=== PATIENT | female | born 1965 | race Caucasian/White ===

== ENCOUNTER → 2024-09-17 | Outpatient (CLI) | payer BC, SELFPAY ==
[2024-09-17 10:55] LABS: T4 (Thyroxine) 9.5 mcg/dL (4.5-10.9)
[2024-09-17 10:58] LABS: Cardiac Risk Estimate 4.1 RATIO (3.7-5.6); Cholesterol 212 mg/dL (132-200); HDL Cholesterol 52 mg/dL (40-60); LDL Cholesterol,Calculated 137 mg/dL (0-130); Thyroid Stimulating Hormone 2.31 uIU/mL (0.55-4.78); Triglycerides 115 mg/dL (30-150)
[2024-09-17 11:12] LABS: Glucose Estimated Average 88 mg/dL (80-131); Hemoglobin A1C 4.7 % Hgb (4.8-6.0)
[2024-09-24 07:28] LABS: Direct LDL* 138 mg/dL (<100); T3,Total* 79 ng/dL (76-181)
== END | disposition home or self-care (01) ==
PROVIDERS: PCP Physician Assistant; Referring Provider Physician Assistant; Visit Provider Physician Assistant
DX: E06.3 Autoimmune thyroiditis (principal)
CPT/HCPCS: 36415; 80061; 83036; 83721; 84436; 84443; 84480

== ENCOUNTER 2024-09-18 09:30 | Outpatient (RCR) | payer BC, SELFPAY ==
--- NOTE | 2024-09-04 10:12 | PT.ODAYNRPT ---
PT Outpatient Daily Note OP Daily Note Outpatient Physical Therapy Treatment Date: 09/04/24 Visit Reasons: Parkinson's Subjective: Pt reports she is doing ok, today is an ok day feels a little more stiff than usual. Pt mentioned they had added a new medication that was making her dizzy, pt fell in her home as a result of the dizziness and her balance. No report of injuries of visit to ER. Objective: Please see flow sheet for ther ex list. Assessment: Pt presents in clinic with healing black eye on L side, pt shared she had a fall last week. Pt demonstrates worsening shuffling gait at beginning of todays session compared to last PT session. Added core strengthening to work on static and dynamic balance. Plan: Continue with POC. Length of Time (minutes) of Treatment: 30 Minutes Procedure Charges Therapeutic Exercise 30 minutes: Yes
--- NOTE | 2024-09-06 10:07 | PT.ODAYNRPT ---
PT Outpatient Daily Note OP Daily Note Outpatient Physical Therapy Treatment Date: 09/06/24 Visit Reasons: Parkinson's Subjective: Pt reports she feels better, stopped taking a medication that was giving her dizziness. Objective: Please see flow sheet for ther ex list. Assessment: Pt ambulating today with increase stride compared to last PT session. Pt instructed on standing marches, pt performs with moderate sway requiring UE to recover balance. Plan: Continue with POc. Length of Time (minutes) of Treatment: 30 Minutes Procedure Charges Therapeutic Exercise 30 minutes: Yes
--- NOTE | 2024-09-11 09:50 | PT.ODS1RPT ---
PT OP Progress/Discharge Note Date of Service: 09/11/24 Progress Note/DC Note Progress Note/Discharge Note: Progress Note Patient Information Visit Reasons: Parkinson's Medical Diagnosis: Parkinson; Ataxia Treatment Dx #1: Abnormal Gait Service Continue Service or Discharge: Continue Service Certification Date Certification Dates: 09/11/24 to 12/12/24 Status Subjective: Pt reports she has fallen a few times in the past few weeks due to feeling dizzy or medication related. Pt mention recently neurologist saw white spots in her cerebellum with most recent MRI. Pt continues to drive and perform ADLs as best as she can. Pt still has limitation with walking, recreational activities, balance, and performing certain ADLs. Pt wants to continue physical therapy to work on balance, walking, core strength, and UE mobility. Pt's one main goal is to be able to use a treadmill in the future. Objective: BLE AROM: all motions are WFL BUE AROM: all motions are WFL BLE MMTs: grossly 4/5 BUE MMTs: grossly 4/5 TU sec Sit-Stand: 10 reps Modified CTSIB condition 4: 5 sec Assessment: Pt demonstrate functional strength, however, continues to have balance deficits, sequencing, and timing impairment with cerebellum involvement. Pt's gait improvement is inconsistent each session due to presented symptoms sometimes related to medication. Pt has not met set goals in therapy and will continue to benefit from physical therapy; thank you for your referrals. Plan: Continue with PT/POC and add 12 sessions (2 x wk for 6 wks) Procedure Charges Therapeutic Exercise 30 minutes: Yes
--- NOTE | 2024-09-18 10:53 | PT.ODAYNRPT ---
PT Outpatient Daily Note OP Daily Note Outpatient Physical Therapy Treatment Date: 09/18/24 Visit Reasons: Parkinson's Subjective: Pt brought in by family. Objective: Please see flow sheet for ther ex list. 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 Plan: Continue with POC. Length of Time (minutes) of Treatment: 30 Minutes Procedure Charges Therapeutic Exercise 30 minutes: Yes
--- NOTE | 2024-10-23 09:28 | PT.ODS1RPT ---
PT OP Progress/Discharge Note Date of Service: 10/23/25 Progress Note/DC Note Progress Note/Discharge Note: DC Note Patient Information Visit Reasons: Parkinson's Service Discharge Date: 10/23/24 Status Assessment: Pt has been seen for 24 visits (eval + 23 visits). Pt last treated on 09/18/24 and will be d/c from care at this time due to plan of care 10/18/24. Pt did not meet set goals in therapy; thank you for your referrals.
== END 2024-09-29 23:59 | disposition home or self-care (01) ==
LOC: CPTX 09:30
PROVIDERS: PCP Nurse Practitioner Family; Referring Provider Nurse Practitioner Family; Visit Provider Nurse Practitioner Family
DX: R27.0 Ataxia, unspecified (principal); G20.A1 Parkinson's disease without dyskinesia, without mention of fluctuations; Z91.81 History of falling
CPT/HCPCS: 97110

== ENCOUNTER → 2025-01-03 | Outpatient (CLI) | payer BC, SELFPAY ==
[2025-01-03 09:57] LABS: Basophils # (Auto) 0.1 Thou/mm3 (0.0-0.2); Basophils % (Auto) 1 % (0-2.5); Eosinophils # (Auto) 0.1 Thou/mm3 (0.0-0.5); Eosinophils % (Auto) 1 % (0-10); Hematocrit 33.9 % (36.0-46.0); Hemoglobin 11.3 g/dL (12.0-16.0); Immature Granulocytes % (Auto) 0 % (0-0); Immature Granulocytes Auto 0.02 Thou/mm3 (0.00-0.00); Lymphocytes # (Auto) 2.1 Thou/mm3 (1.0-4.8); Lymphocytes % (Auto) 24 % (10-50); Mean Corpuscular HGB Conc 33.3 g/dl (31.0-37.0); Mean Corpuscular Hemoglobin 30.5 pg (25.0-35.0); Mean Corpuscular Volume 91 fL (80-100); Monocytes # (Auto) 0.6 Thou/mm3 (0.0-0.8); Monocytes % (Auto) 7 % (0-12); Neutrophils # (Auto) 5.9 Thou/mm3 (1.8-7.7); Neutrophils % (Auto) 68 % (37-80); Nucleated Red Blood Cell % 0 /100 WBC (0); Platelet Count 325 Thou/mm3 (140-440); RDW Standard Deviation 41.4 fL (36.4-46.3); Red Blood Count 3.71 Miln/mm3 (4.00-5.20); White Blood Count 8.8 Thou/mm3 (3.6-11.0)
[2025-01-03 10:09] LABS: Glucose Estimated Average 94 mg/dL (80-131); Hemoglobin A1C 4.9 % Hgb (4.8-6.0)
[2025-01-03 10:40] LABS: Vitamin B12 1236 pg/mL (211-911); Vitamin D 25 Hydroxy Total 45.4 ng/mL (7.3-40.2)
[2025-01-03 10:42] LABS: Ferritin 7 ng/mL (7.3-270.7); Iron 57 mcg/dL (50-170); Percent Iron Saturation 14 % (20-55); Total Iron Binding Capacity 383 mcg/dL (250-425); Unsaturated Iron Binding 326 (225-295)
[2025-01-03 10:43] LABS: Alanine Aminotransferase 15 U/L (10-49); Albumin, Serum 4.6 gm/dL (3.4-4.8); Albumin/Globulin Ratio 1.9 (1.2-2.2); Alkaline Phosphatase 44 U/L (46-116); Anion Gap 7 (7-16); Aspartate Amino Transferase < 10 U/L (0-34); BUN/Creatinine Ratio 18 Ratio (12-20); Bilirubin,Total 0.3 mg/dL (0.3-1.2); Blood Urea Nitrogen 16 mg/dL (9-23); Calcium 9.9 mg/dL (8.3-10.6); Calcium (Corrected) 9.9 mg/dL (8.5-10.1); Carbon Dioxide 28.4 mMol/L (20.0-31.0); Cardiac Risk Estimate 3.6 RATIO (3.7-5.6); Chloride 109 mMol/L (98-107); Cholesterol 195 mg/dL (132-200); Creatinine (Component) 0.9 mg/dL (0.6-1.3); Free T3 3.3 pg/mL (2.3-4.2); Free T4 (Free Thyroxine) 2.55 ng/dL (0.89-1.76); Globulin 2.4 gm/dL (2.3-3.5); Glucose 91 mg/dL (74-106); HDL Cholesterol 54 mg/dL (40-60); LDL Cholesterol,Calculated 113 mg/dL (0-130); Osmolality,Calculated 288 (275-295); Potassium 4.2 mMol/L (3.4-5.1); Sodium 144 mMol/L (136-145); Thyroid Stimulating Hormone 0.18 uIU/mL (0.55-4.78); Triglycerides 140 mg/dL (30-150); eGFR > 60 See Note
[2025-01-09 06:45] LABS: Sex Hormone Binding Globulin* 66 nmol/L (14-73); T3,Total* 68 ng/dL (76-181); Testosterone, Free,Dialysis 6.7 pg/mL (0.1-6.4); Testosterone, Total, Dialysis 61 ng/dL (2-45)
== END | disposition home or self-care (01) ==
PROVIDERS: PCP Family Medicine; Referring Provider Advanced Practice Midwife; Visit Provider Advanced Practice Midwife
DX: E61.1 Iron deficiency (principal); M25.9 Joint disorder, unspecified; R53.83 Other fatigue; N95.1 Menopausal and female climacteric states; L65.9 Nonscarring hair loss, unspecified; E78.5 Hyperlipidemia, unspecified; E03.9 Hypothyroidism, unspecified; E55.9 Vitamin D deficiency, unspecified
CPT/HCPCS: 36415; 80053; 80061; 82306; 82607; 82728; 83036; 83540; 83550; 84270; 84402; 84403; 84439; 84443; 84480; 84481; 85025

== ENCOUNTER → 2025-02-12 | Outpatient (CLI) | payer BC, SELFPAY ==
[2025-02-12 10:18] LABS: Iron 44 mcg/dL (50-170); Percent Iron Saturation 11 % (20-55); Total Iron Binding Capacity 376 mcg/dL (250-425); Unsaturated Iron Binding 332 (225-295)
== END | disposition home or self-care (01) ==
PROVIDERS: PCP Family Medicine; Referring Provider Family Medicine; Visit Provider Family Medicine
DX: D50.9 Iron deficiency anemia, unspecified (principal)
CPT/HCPCS: 36415; 83540; 83550

== ENCOUNTER 2025-02-28 05:32 | Emergency (ER) | payer BC, SELFPAY ==
[2025-02-28 05:33] VITALS: BMI 27.4
[2025-02-28 05:59] VITALS: BP 97/56; PULSE 96; RESP 17; TEMP 36.8; O2SAT 99
--- NOTE | 2025-02-28 06:13 | EKG_ITS ---
[facility] Test Date: 2025-02-28 Pat Name: MONIQUE MARY Department: Room: - Gender: Female Reflesher: : 1965 Requested By: Ricci Umaña Order Number: [id number] Reading MD: Ricci Umaña Measurements Intervals [place] Rate: 77 P: [place]: QRS: 39 QRSD: 87 T: 36 QT: 365 QTc: 414 Interpretive Statements SUPRAVENTRICULAR RHYTHM ABNORMAL RHYTHM ECG No previous ECG available for comparison /store/S0/[id number].pdf
--- NOTE | 2025-02-28 06:15 | XR_ITS ---
Examination: CT brain head without contrast. 2-D sagittal coronal reconstructions Date and time of exam:February 28, 2025 0631 hours INDICATIONS: Altered mental status shakiness be any 3:30 this morning CTDI: vol (mGy):46.6 DLP: (mGycm):901- Technique: Multiple CT axial sections of the brain have been obtained, 5 mm slice thickness. Contrast has not been administered. 2-D sagittal, coronal reconstructions have been obtained Low dose protocols were performed. One or more of the following dose reduction techniques were used; automated exposure control, adjustment of the mA and/or KV according to patient size, use of iterative reconstruction technique. Findings: No significant ventricular enlargement. Intra-axial or extra-axial hemorrhage density is not seen. No mass effect or midline shift Basal cisterns are not remarkable. Fourth ventricle is midline. Cranial vault intact. Impression: Negative for acute hemorrhage, mass effect or midline shift
--- NOTE | 2025-02-28 06:16 | PD.EDEXREM ---
ED Extremity Problem RME/HPI General Chief complaint: Extremity Problem,Nontraumatic Stated complaint: FEET SWOLLEN, SHAKING, FEELS DEHYDRATED Time Seen by Provider: 02/28/25 06:13 Arrival date/time: 02/28/25 05:32 Limitations: no limitations RME / HPI RME / HPI Narrative: 59 y/o female with history of tremors, has consulted [facility] and [facility] [place] with no clear explanation, was brought to ED by her daughter, concerned that her tremors are worsening for the past month. The tremors have been present far the past 3-4 years. Related Data Allergies Allergy/AdvReac Type Severity Reaction Status Date / Time No Known Allergies Allergy Verified 02/28/25 05:35 Review of Systems Review of Systems Systems Reviewed: All systems reviewed, normal except as documented ED Exam General Limitations: Present no limitations General appearance: Present alert Head Head exam: Present atraumatic Eye Eye exam: Present normal appearance ENT ENT exam: Present normal exam Neck Neck exam: Present normal inspection Chest Chest inspection: Present normal inspection and symmetric chest wall rise Respiratory Respiratory exam: Present normal lung sounds bilaterally and respiratory distress Cardiovascular Cardiovascular exam: Present regular rate and normal rhythm Abdominal Exam Abdominal exam: Present soft and normal bowel sounds Extremities Exam Extremities exam: Present other (Patient has low amplitude, low frequency unintentional tremors of both upper extremities, more prominent on the right. They continue to be the same with intentional use. At the time seen, her legs, face and torso did not show any tremors. ) Back Exam Back exam: Present normal inspection Neurological Exam Neurological exam: Present alert, oriented X3 and CN II-XII intact Psychiatric Psychiatric exam: Present depressed Skin Skin exam: Present warm and dry Course Quality Measures none Orders Category Date Time Status EKG (ED ONLY) *Do not use* NOW Care 02/28/25 06:[address] head/brain wo con Stat Exams 02/28/25 06:15 Completed EKG (ED Only) Stat Exams 02/28/25 06:13 Draft BNP [B-Type Natriuretic Peptide] Stat Lab 02/28/25 06:55 Completed CBC Stat Lab 02/28/25 06:55 Completed Comprehensive Metabolic Panel Stat Lab 02/28/25 06:55 Completed TSH [Thyroid Stimulating Hormone] Stat Lab 02/28/25 06:55 Completed Troponin I Stat Lab 02/28/25 06:55 Completed Vital Signs Vital signs: Vital Signs Temperature 98.2 F 05/01/25 05:59 Pulse Rate 96 02/28/25 05:59 Respiratory Rate 17 02/28/25 05:59 Blood Pressure 97/56 L 02/28/25 05:59 Pulse Oximetry (%) 99 02/28/25 05:59 Oxygen Delivery Method Room Air 02/28/25 05:59 Extremity Problem MDM Narrative MDM Narrative:: Patient's condition is not new, has been evaluated by tertiary care centers such as [facility] and [facility] [place] without any clear answers. Today, her blood work, EKG and CT scan remain unremarkable. Patient data External records reviewed:: None Clinical information provided by:: patient Social determinants that could affect healthcare access:: none Patient has the following chronic illnesses:: Essential tremors How is presenting disease/condition affected by chronic disease/condition?: caused by Evaluation data The following diagnostics were reviewed and interpreted by me:: lab results Lab and/or radiology exams considered but not ordered:: Reviewed and unremarkable Interpretation Summary: Unremarkable Medications / Prescriptions Medications or Prescriptions considered but not ordered:: None Medication administrations:: None Consultations Consultation(s) initiated? (list below): No Diagnosis Most likely diagnosis given after review of the tests above:: Essential tremors Admission Indicated Admission indicated?: not indicated Admission Request Was there a request for admission?: No Disposition Plan Disposition Plan: Discharge Discharge Attestation Discharge Attestation: The patient and all family members were given an opportunity to ask questions and understood the discharge instructions. Discharge instructions specifically effects, indications for sooner follow up or return to the emergency department, and the expected course of current diagnosis. Patient condition: Stable Discharge Plan Plan Patient Disposition: HOME (Self Care) Patient condition on transfer: Stable Prescriptions/Referrals Referrals: Ninoska Chapman MD [Primary Care Provider] - In 1 week Problem List Clinical Impression: Disabling essential tremor Patient/Caregiver Discharge Instructions Discharge Activity: activity as tolerated Education Materials: Essential Tremor (ET) Print Language: Armenian Stand Alone Forms: [facility] Award Info., Patient Portal Info Letter
[2025-02-28 07:22] LABS: Basophils % (Auto) 0 % (0-2.5); Eosinophils # (Auto) 0.1 Thou/mm3 (0.0-0.5); Eosinophils % (Auto) 1 % (0-10); Hematocrit 36.4 % (36.0-46.0); Hemoglobin 12.2 g/dL (12.0-16.0); Immature Granulocytes % (Auto) 0 % (0-0); Immature Granulocytes Auto 0.04 Thou/mm3 (0.00-0.00); Lymphocytes # (Auto) 2.6 Thou/mm3 (1.0-4.8); Lymphocytes % (Auto) 25 % (10-50); Mean Corpuscular HGB Conc 33.5 g/dl (31.0-37.0); Mean Corpuscular Hemoglobin 31.6 pg (25.0-35.0); Mean Corpuscular Volume 94 fL (80-100); Monocytes # (Auto) 0.7 Thou/mm3 (0.0-0.8); Monocytes % (Auto) 7 % (0-12); Neutrophils # (Auto) 6.9 Thou/mm3 (1.8-7.7); Neutrophils % (Auto) 67 % (37-80); Nucleated Red Blood Cell % 0 /100 WBC (0); Platelet Count 332 Thou/mm3 (140-440); RDW Standard Deviation 45.4 fL (36.4-46.3); Red Blood Count 3.86 Miln/mm3 (4.00-5.20); White Blood Count 10.3 Thou/mm3 (3.6-11.0)
[2025-02-28 07:43] LABS: B-Type Natriuretic Peptide 22 pg/mL (0-100)
[2025-02-28 07:44] LABS: Alanine Aminotransferase 22 U/L (10-49); Albumin, Serum 4.6 gm/dL (3.4-4.8); Albumin/Globulin Ratio 1.8 (1.2-2.2); Alkaline Phosphatase 47 U/L (46-116); Anion Gap 6 (7-16); Aspartate Amino Transferase 21 U/L (0-34); BUN/Creatinine Ratio 20 Ratio (12-20); Bilirubin,Total 0.5 mg/dL (0.3-1.2); Blood Urea Nitrogen 16 mg/dL (9-23); Calcium 9.5 mg/dL (8.3-10.6); Calcium (Corrected) 9.5 mg/dL (8.5-10.1); Carbon Dioxide 28.8 mMol/L (20.0-31.0); Chloride 108 mMol/L (98-107); Creatinine (Component) 0.8 mg/dL (0.6-1.3); Estimated Creatinine Clearance 66.8 mL/min (>60); Globulin 2.5 gm/dL (2.3-3.5); Glucose 89 mg/dL (74-106); Osmolality,Calculated 285 (275-295); Potassium 3.8 mMol/L (3.4-5.1); Sodium 143 mMol/L (136-145); Thyroid Stimulating Hormone 2.16 uIU/mL (0.55-4.78); Total Protein 7.1 gm/dL (5.7-8.2); Troponin I < 0.002 ng/mL (0.0-0.045); eGFR > 60 See Note
[2025-02-28 08:09] VITALS: BP 144/69; PULSE 80; RESP 18; TEMP 36.6; O2SAT 100
== END 2025-02-28 09:10 | disposition home or self-care (01) ==
PROVIDERS: Emergency Provider Emergency Medicine; PCP Family Medicine
DX: G25.0 Essential tremor (principal); R41.82 Altered mental status, unspecified
CPT/HCPCS: 36415; 70450; 80053; 83880; 84443; 84484; 85025; 93005; 99284

== ENCOUNTER 2025-04-23 09:25 | Outpatient (RCR) | payer BC, SELFPAY ==
--- NOTE | 2025-04-23 18:33 | PTNOTE_ITS ---
PT OP Initial Eval Patient Information Outpatient Physical Therapy Treatment Date: 04/23/25 Visit Reasons: parkinson Medical Diagnosis: G20 Treatment Dx #1: balance impairment Treatment Dx #2: unsteady gait Start of Care: 04/23/25 Date of Onset: 6 months ago Smoking Status Smoking Status: Never smoker Initial Assessment Subjective: Pt is 59 yr old female with PMH of Parkinson's presents ambulating with 4WW and reports recent falls and unsteadiness on her feet. She says this limits mobility at home and in the community. PMH: Parkinsons, hypothyroidism Pt goal: to walk without the walker like she was before Objective: 30 sec chair to stand test: 9 Tinetti gait and balance test: 02/25 Balance in standing: unsteady without hand support Gait: ataxic and shuffling with 4 wheel walker Strength: Quads: 4/5 HS: 4/5 Ankle DF: 4/5 B Assessment: Pt presents with unsteady balance in standing and unsafe balance with 4WW. I had to steady her x2 to prevent losing balance forward as the walker gets away from her. Pt scored very low on the Tinetti gait and balance test. PT recommends she not use the 4WW but use a front wheel walker instead that doesn't advance so fast. Pt has declined in function since last round of therapy ending 6 months ago. Pt may benefit from skilled therapy to learn HEP but rehab potential is poor to meet goals. Short Term and Senior Care Goals 1. Ind with HEP 2. Ambulate without losing balance forward x100' with SBA 3. Improved step length to have swing foot pass stance foot x50' using FWW Treatment Plan 1. Therex 2. Manual therapy 3. Gait training 4. Neuromuscular re-education Frequency and Duration: 1-2x a week for 12 visits Certification Dates: 04/23/25 to 07/23/25 Procedure Charges OP PT Eval Mod Complex 30 minutes: Yes
== END 2025-04-29 23:59 | disposition home or self-care (01) ==
LOC: CPTX 09:25
PROVIDERS: PCP Nurse Practitioner Family; Referring Provider Nurse Practitioner Family; Visit Provider Nurse Practitioner Family
DX: R26.89 Other abnormalities of gait and mobility (principal); G20.A1 Parkinson's disease without dyskinesia, without mention of fluctuations
CPT/HCPCS: 97162

== ENCOUNTER → 2025-05-21 | Outpatient (CLI) | payer BC, SELFPAY ==
[2025-05-21 14:54] LABS: Collection Type, Urine Clean Catch
[2025-05-21 16:09] LABS: Bacteria,Urine 3+; Bilirubin,Urine Negative (Negative); Blood,Urine Negative (Negative); Calcium Oxalate Crystals,Urine 4+; Color,Urine Yellow (Lt Yel-Yel); Glucose, Urine Negative (Negative); Ketones,Urine Negative (Negative); Leukocyte Esterase,Urine Positive (Negative); Nitrite,Urine Negative (Negative); PH,Urine 6.5 (5.0-7.0); Protein,Urine Negative (Neg - Trace); RBC,Urine 15 /hpf (0-3); Specific Gravity,Urine 1.018 (1.001-1.035); Squamous Epithelial Cell,Urine 5 /hpf (0-5); Urobilinogen,Urine Negative mg/dL (0.0-1.0); WBC,Urine 168 /hpf (0-5)
[2025-05-21 16:11] LABS: Clarity,Urine Hazy (Clear/Hazy)
== END | disposition home or self-care (01) ==
LOC: SLDO 14:30
PROVIDERS: PCP Family Medicine; Referring Provider Family Medicine; Visit Provider Family Medicine
DX: N39.0 Urinary tract infection, site not specified (principal)
CPT/HCPCS: 81001; 87086

== ENCOUNTER 2025-05-23 10:16 | Outpatient (RCR) | payer BC, SELFPAY ==
--- NOTE | 2025-05-23 13:31 | PT.ODAYNRPT ---
PT Outpatient Daily Note OP Daily Note Outpatient Physical Therapy Treatment Date: 05/23/25 Visit Reasons: Parkinsons Subjective: Pt brought in by daughter. Objective: Please see flow sheet for there xlist. Assessment: Pt ambulates wtih shuffling gait and forward stooped posture, pt unsteady during ambulation high fall risk. 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 Plan: Continue with POC. Length of Time (minutes) of Treatment: 30 Minutes Procedure Charges Therapeutic Exercise 30 minutes: Yes
== END 2025-05-30 23:59 | disposition home or self-care (01) ==
LOC: CPTX 10:16
PROVIDERS: PCP Nurse Practitioner Family; Referring Provider Nurse Practitioner Family; Visit Provider Nurse Practitioner Family
DX: R26.81 Unsteadiness on feet (principal); R26.89 Other abnormalities of gait and mobility; G20.A1 Parkinson's disease without dyskinesia, without mention of fluctuations
CPT/HCPCS: 97110

== ENCOUNTER → 2025-05-24 | Outpatient (CLI) | payer BC, SELFPAY ==
[2025-05-24 10:13] LABS: Misc Send Out* See Sep Rpt
[2025-05-24 11:48] LABS: Iron 72 mcg/dL (50-170); Percent Iron Saturation 22 % (20-55); Total Iron Binding Capacity 314 mcg/dL (250-425); Unsaturated Iron Binding 242 (225-295)
[2025-05-31 06:19] LABS: Methylmalonic Acid, GC/MS/MS* 324 nmol/L (69-390)
== END | disposition home or self-care (01) ==
LOC: COPL 09:52
PROVIDERS: PCP Family Medicine; Referring Provider Family Medicine; Visit Provider Family Medicine
DX: D50.9 Iron deficiency anemia, unspecified (principal); G32.81 Cerebellar ataxia in diseases classified elsewhere
CPT/HCPCS: 36415; 83540; 83550; 83921

== ENCOUNTER → 2025-05-30 | Outpatient (CLI) | payer BC, SELFPAY ==
[2025-05-30 14:40] LABS: Collection Type, Urine Clean Catch
[2025-05-30 17:30] LABS: Bilirubin,Urine Negative (Negative); Blood,Urine Negative (Negative); Clarity,Urine Clear (Clear/Hazy); Color,Urine Lt-Yellow (Lt Yel-Yel); Glucose, Urine Negative (Negative); Ketones,Urine Negative (Negative); Leukocyte Esterase,Urine Negative (Negative); Nitrite,Urine Negative (Negative); PH,Urine 6.5 (5.0-7.0); Protein,Urine Negative (Neg - Trace); RBC,Urine 2 /hpf (0-3); Specific Gravity,Urine 1.020 (1.001-1.035); Squamous Epithelial Cell,Urine 3 /hpf (0-5); Urobilinogen,Urine Negative mg/dL (0.0-1.0); WBC,Urine 1 /hpf (0-5)
== END | disposition home or self-care (01) ==
LOC: SLDO 14:30
PROVIDERS: PCP Physician Assistant; Referring Provider Physician Assistant; Visit Provider Physician Assistant
DX: N39.0 Urinary tract infection, site not specified (principal)
CPT/HCPCS: 81001; 87086

== ENCOUNTER 2025-08-10 17:02 | Emergency (ER) | payer BC, SELFPAY ==
[2025-08-10 18:09] VITALS: BP 148/72; PULSE 68; RESP 19; TEMP 36.7; O2SAT 97
--- NOTE | 2025-08-10 18:41 | XR_ITS ---
Examination: CT cervical spine without contrast 2-D sagittal reconstructions 2-D coronal reconstructions 3-D reconstructions. Exam date and time: August 10, 2025, 1910 hours INDICATIONS: Ground-level fall today with injury to the neck, neck pain CTDI:vol (mGy) 11.2 DLP: (mGycm) 268 Technique: Multiple 2 mm axial sections of the cervical spine have been obtained. The coronal and sagittal reconstructions have been obtained. 3-D reconstructions have been obtained. Low dose protocols were performed. One or more of the following dose reduction techniques were used; automated exposure control, adjustment of the mA and/or KV according to patient size, use of iterative reconstruction technique. Findings: Axial sections demonstrate intact base of the skull. C1 exhibit satisfactory relationship to the odontoid. No acute cervical vertebral body fracture seen. Alignment posterior spinous processes satisfactory. Impression: No acute cervical fracture.
--- NOTE | 2025-08-10 18:41 | XR_ITS ---
Examination: CT brain head without contrast. 2-D sagittal coronal reconstructions Date and time of exam: August 10, 2025, 1909 hours INDICATIONS: Injury to the head today, head pain CTDI: vol (mGy): 45.6 DLP: (mGycm): 902 Technique: Multiple CT axial sections of the brain have been obtained, 5 mm slice thickness. Contrast has not been administered. 2-D sagittal, coronal reconstructions have been obtained Low dose protocols were performed. One or more of the following dose reduction techniques were used; automated exposure control, adjustment of the mA and/or KV according to patient size, use of iterative reconstruction technique. Findings: No significant ventricular enlargement. Intra-axial or extra-axial hemorrhage density is not seen. No mass effect or midline shift Basal cisterns are not remarkable. Fourth ventricle is midline. Cranial vault intact. Impression: Negative for acute hemorrhage, mass effect or midline shift
--- NOTE | 2025-08-10 18:42 | XR_ITS ---
Examination: Knee, left, 3 views Technique: Knee AP, lateral, oblique 3 views Date and time of exam: August 10, 2025, 1844 hours INDICATIONS: Injury to the left knee today, knee pain FINDINGS: No fracture or dislocation No foreign body IMPRESSION: No acute fracture
--- NOTE | 2025-08-10 18:42 | XR_ITS ---
Examination: Left elbow 3 views Technique: Elbow AP, oblique, lateral 3 views Exam date and time: August 10, 2025, 1852 hours INDICATIONS: Injury to the elbow today, elbow pain. FINDINGS: No fracture or dislocation. No elbow effusion IMPRESSION: No acute fracture.
--- NOTE | 2025-08-10 20:01 | PD.EDRME ---
Rapid Medical Screening Exam RME Arrival date/time: 08/10/25 17:02 This is a case of 59-year-old female who have tripped and fell today and hit his head on flat floor sustaining scalp laceration occipital area and neck pain patient also sustained a contusion and abrasion on the left elbow and left knee no LOC Chief Complaint: Fall Time Seen by Provider: 08/10/25 18:30 Vital signs: Vital Signs Temperature 98.1 F 08/10/25 18:09 Pulse Rate 68 08/10/25 18:09 Respiratory Rate 19 08/10/25 18:09 Blood Pressure 148/72 H 08/10/25 18:09 Pulse Oximetry (%) 97 08/10/25 18:09 Oxygen Delivery Method Room Air 08/10/25 18:09
--- NOTE | 2025-08-10 20:46 | EDNOTE_ITS ---
ED Fall Injury RME/HPI General Chief Complaint: Fall Stated Complaint: Fall X 2 today, loss of LOC, laceration Time Seen by Provider: 08/10/25 18:30 Arrival date/time: 08/10/25 17:02 RME / HPI RME / HPI Narrative: 08/10/25 17:02 This is a case of 59-year-old female who have tripped and fell today and hit his head on flat floor sustaining scalp laceration occipital area and neck pain patient also sustained a contusion and abrasion on the left elbow and left knee no LOC DR. ESPITIA MAIN ED EVALUATION: Patient with Hx of Chronic progressing disequilibrium under the care of a neurologist after reported mechanical fall this morning with reported brief syncopal episode while rising from the couch when attempting to switch walkers, patient fell backwards landing on posterior occiput (experiencing a brief 3-5 seconds LOC). Denies escalating ROSSI, vomiting, neck pain, and radiculopathy. PMH: Progressive Disequilibrium, currently being evaluated pending LP in 1 week. PSH: Non-contributory Social: Non-drinker, Non-smoker, No illicit drug abuse Related Data Previous Rx's ?Medication ?Instructions ?Recorded bacitracin 500 unit/gram topical 1 applic topical TID #14 grams 08/10/25 ointment Allergies Allergy/AdvReac Type Severity Reaction Status Date / Time No Known Allergies Allergy Verified 08/10/25 17:15 Past Medical History Social History SMOKING STATUS: Former smoker ED Exam Narrative Physical exam: GEN. APPEARANCE: The patient is alert awake oriented X-3 in no distress, lying down comfortably, does not look ill/toxic. Patient has good eye contact. Patient is cooperative. GCS 15 with near-complete recall of event, pain primarily at site of impact. VITALS: All vitals were reviewed and the pulse ox is 97% on room air which is normal according to my interpretation. HEENT: Normocephalic, 3 cm deep abrasion with surrounding edema, tenderness to left posterior occiput, no step-off noted. Pupils are equal and reactive. Oral mucosa is moist. Patent Nares NECK: Supple, nontender midline, no thyromegaly, no meningismus, no JVD, no step offs CHEST: Symmetrical, atraumatic, and with equal expansion , Nontender on palpation no deformity and no crepitus. CARDIOVASCULAR: Heart regular rhythm no murmur or gallop rub or extra beats. LUNGS: Clear to auscultation bilaterally with symmetrical chest rise. No laboring tachypnea or wheezing. No intercostal subcostal retraction. No rales and no rhonchi. ABDOMEN: Soft, flat, nontender to palpation, no guarding or rebound tenderness. There are no abnormal masses palpated. Active and normal bowel sounds. EXTREMITIES: Nontender. No edema. No cyanosis. Patient is able to move all 4 extremities well, with full ROM and good CSM. SKIN: Warm and dry, no jaundice or rashes noted. MUSCULOSKELETAL: No lubar or midline bony tenderness. There is no CVA tenderness. No paraspinal muscle spasm or tenderness. NEURO: Patient is LOVELL x 4, Cranial nerves II through XII grossly intact. There is no focal neurologic deficits noted. GCS is 15, PNS and [employer] appear grossly intact. Normal finger to nose, no gait observed. PSYCHIATRIC: Patient is in normal mood and affect, cooperative, no SI or HI or hallucinations. Course Quality Measures none Orders Category Date Time Status EKG (ED ONLY) *Do not use* NOW Care 08/10/25 20:[address] cervical spine wo con Stat Exams 08/10/25 18:[address] head/brain wo con Stat Exams 08/10/25 18:41 Completed EKG (ED Only) Stat Exams 08/10/25 20:53 Draft XR elbow LT 2V Stat Exams 08/10/25 18:42 Completed XR knee LT 3V Stat Exams 08/10/25 18:42 Completed CBC [CBC] Stat Lab 08/10/25 21:02 Completed CMP [Comprehensive Metabolic Panel] Stat Lab 08/10/25 21:02 Completed Troponin I Stat Lab 08/10/25 21:02 Completed Vital Signs Vital signs: Vital Signs Temperature 98.1 F 08/10/25 18:09 Pulse Rate 68 08/10/25 18:09 Respiratory Rate 19 08/10/25 18:09 Blood Pressure 148/72 H 08/10/25 18:09 Pulse Oximetry (%) 97 08/10/25 18:09 Oxygen Delivery Method Room Air 08/10/25 18:09 Fall MDM Narrative MDM Narrative:: Scribe Attestation: I, Lorenza Patricio, am scribing for and in the presence of Dr. Espitia. Provider Notation: Although this document has been carefully reviewed, there may still be some phonetic and other typographical errors. These errors are purely grammatical due to imperfections in the software program and should not be construed in any way to compromise the substance of the patient's medical care during this visit. 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 Denies escalating ROSSI, vomiting, neck pain, and radiculopathy. Please see PE findings. Laboratory markers are pending. CT scan of the brain was unremarkable. Cervical spine imaging within normal limits. Both knee and elbow x-rays were negative for acute injury. Patient was observed for an extended period of time in ED. Patient remained neurologically at baseline. Head appeared to be abraded by near-syncopal episode and appeared to be at baseline after head strike reducing likelihood of concussion. Considered stable for discharge, reassured, updated Tetanus, and discharged with precautionary instructions. Final diagnoses include Syncope, Scalp laceration, and Head contusion. Patient data External records reviewed:: [facility] previous records (Reviewed prior ED records from 02/28/25. Patient was seen for Disabling essential tremor.) Clinical information provided by:: patient Social determinants that could affect healthcare access:: none Patient has the following chronic illnesses:: None reported How is presenting disease/condition affected by chronic disease/condition?: no chronic disease Evaluation data The following diagnostics were reviewed and interpreted by me:: lab results, radiology exam(s) and EKG tracing(s) (EKG at 21:08 shows normal sinus rhythm at 77, normal axis, no ectopy, no signs of acute ischemia, per my interpretation.) Lab and/or radiology exams considered but not ordered:: None Interpretation Summary: RADIOLOGY Knee X-Ray: FINDINGS: No fracture or dislocation No foreign body IMPRESSION: No acute fracture Elbow X-Ray: FINDINGS: No fracture or dislocation. No elbow effusion IMPRESSION: No acute fracture. Head/Brain CT: Findings: No significant ventricular enlargement. Intra-axial or extra-axial hemorrhage density is not seen. No mass effect or midline shift Basal cisterns are not remarkable. Fourth ventricle is midline. Cranial vault intact. Impression: Negative for acute hemorrhage, mass effect or midline shift C-Spine CT: Findings: Axial sections demonstrate intact base of the skull. C1 exhibit satisfactory relationship to the odontoid. No acute cervical vertebral body fracture seen. Alignment posterior spinous processes satisfactory. Impression: No acute cervical fracture. Medications / Prescriptions Medications or Prescriptions considered but not ordered:: None Medication administrations:: See above if any Consultations Consultation(s) initiated? (list below): No Diagnosis Fall Differential Diagnosis: syncope, concussion with loss of consciousness and concussion without loss of consciousness Most likely diagnosis given after review of the tests above:: Syncope, Contusion of head, Abrasion of scalp Admission Indicated Admission indicated?: not indicated Explain why admission is indicated or not indicated:: Patient does not meet admission criteria Admission Request Was there a request for admission?: No Disposition Plan Disposition Plan: Discharge Discharge Attestation Discharge Attestation: The patient and all family members were given an opportunity to ask questions and understood the discharge instructions. Discharge instructions specifically effects, indications for sooner follow up or return to the emergency department, and the expected course of current diagnosis. Patient condition: Stable Discharge Plan Plan Patient Disposition: HOME (Self Care) Discharge Disposition comment: stable Prescriptions/Referrals Prescriptions/Med Rec: New bacitracin 500 unit/gram ointment 1 applic topical TID Qty: 14 0RF Referrals: Ninoska Chapman MD [Primary Care Provider, Family Practice] - In 1 week Problem List Clinical Impression: Syncope, Contusion of head, Abrasion of scalp Patient/Caregiver Discharge Instructions Discharge Activity: walk with walker only Education Materials: Dizziness Fainting Poss Causes, ED Abrasions, ED Head Injury (Adult) Additional Instructions: Avoid abrupt movements. Walk with assist only. Ice compresses to posterior occiput. Topical bacitracin twice daily. Print Language: Libyan Stand Alone Forms: [facility] Award Info., Patient Portal Info Letter
--- NOTE | 2025-08-10 20:53 | EKG_ITS ---
[facility] Test Date: 2025-08-10 Pat Name: MONIQUE MARY Department: Room: - Gender: Female [employer]or: : 1965 Requested By: Solomon Negrete Order Number: [id number] Reading MD: Solomon Negrete Measurements Intervals [place] Rate: 77 P: 44 [place]: 125 QRS: 83 QRSD: 88 T: 55 QT: 358 QTc: 406 Interpretive Statements SINUS RHYTHM Compared to ECG 02/28/2025 06:20:39 Supraventricular rhythm no longer present /store/[id number]
--- NOTE | 2025-08-10 20:59 | PC.NURSE ---
PT REFUSING EKG, LABS.
[2025-08-10 21:15] LABS: Basophils # (Auto) 0.1 Thou/mm3 (0.0-0.2); Basophils % (Auto) 1 % (0-2.5); Eosinophils # (Auto) 0.1 Thou/mm3 (0.0-0.5); Eosinophils % (Auto) 1 % (0-10); Hematocrit 36.1 % (36.0-46.0); Hemoglobin 12.1 g/dL (12.0-16.0); Immature Granulocytes Auto 0.02 Thou/mm3 (0.00-0.00); Lymphocytes # (Auto) 3.0 Thou/mm3 (1.0-4.8); Lymphocytes % (Auto) 32 % (10-50); Mean Corpuscular HGB Conc 33.5 g/dl (31.0-37.0); Mean Corpuscular Hemoglobin 32.4 pg (25.0-35.0); Mean Corpuscular Volume 97 fL (80-100); Monocytes # (Auto) 0.8 Thou/mm3 (0.0-0.8); Monocytes % (Auto) 8 % (0-12); Neutrophils # (Auto) 5.4 Thou/mm3 (1.8-7.7); Neutrophils % (Auto) 58 % (37-80); Nucleated Red Blood Cell # 0.00 Thou/mm3 (0.00-0.00); Nucleated Red Blood Cell % 0 /100 WBC (0); Platelet Count 297 Thou/mm3 (140-440); RDW Standard Deviation 42.4 fL (36.4-46.3); Red Blood Count 3.74 Miln/mm3 (4.00-5.20); White Blood Count 9.5 Thou/mm3 (3.6-11.0)
[2025-08-10 21:42] LABS: Alanine Aminotransferase 43 U/L (10-49); Albumin, Serum 4.5 gm/dL (3.4-4.8); Albumin/Globulin Ratio 1.9 (1.2-2.2); Alkaline Phosphatase 56 U/L (46-116); Anion Gap 9 (7-16); Aspartate Amino Transferase 28 U/L (0-34); BUN/Creatinine Ratio 25 Ratio (12-20); Bilirubin,Total 0.4 mg/dL (0.3-1.2); Blood Urea Nitrogen 20 mg/dL (9-23); Calcium 9.8 mg/dL (8.3-10.6); Calcium (Corrected) 9.8 mg/dL (8.5-10.1); Carbon Dioxide 30.7 mMol/L (20.0-31.0); Chloride 107 mMol/L (98-107); Creatinine (Component) 0.8 mg/dL (0.6-1.3); Globulin 2.4 gm/dL (2.3-3.5); Glucose 124 mg/dL (74-106); Osmolality,Calculated 296 (275-295); Potassium 3.4 mMol/L (3.4-5.1); Sodium 147 mMol/L (136-145); Total Protein 6.9 gm/dL (5.7-8.2); Troponin I < 0.002 ng/mL (0.0-0.045); eGFR > 60 See Note
== END 2025-08-10 21:19 | disposition home or self-care (01) ==
PROVIDERS: Emergency Provider Emergency Medicine; PCP Family Medicine
DX: S01.01XA Laceration without foreign body of scalp, initial encounter (principal); S50.312A Abrasion of left elbow, initial encounter; S80.02XA Contusion of left knee, initial encounter; S80.212A Abrasion, left knee, initial encounter; W01.198A Fall on same level from slipping, tripping and stumbling with subsequent striking against other object, initial encounter
CPT/HCPCS: 36415; 70450; 72125; 73070; 73562; 80053; 81001; 84484; 85025; 99284